=== PATIENT | female | born 1990 | race American Indian/Alaskan Native ===

== ENCOUNTER 2018-02-14 16:59 | Emergency (ER) | payer SELFPAY ==
[2018-02-14 21:42] LABS: Basophils % (Auto) 0.7 % (0.0-1.8); Eosinophils # (Auto) 0.1 K/mm3 (0.0-0.4); Eosinophils % (Auto) 2.3 % (0.0-4.3); Hematocrit 37.4 % (30.3-42.9); Hemoglobin 12.4 gm/dl (10.1-14.3); Lymphocytes # (Auto) 2.3 K/mm3 (1.2-5.4); Lymphocytes % (Auto) 51.6 % (13.4-35.0); Mean Corpuscular HGB Conc 33 % (30-34); Mean Corpuscular Hemoglobin 31 pg (28-32); Mean Corpuscular Volume 92 fl (79-97); Monocytes # (Auto) 0.4 K/mm3 (0.0-0.8); Platelet Count 303 K/mm3 (140-440); Red Blood Count 4.06 M/mm3 (3.65-5.03); Red Cell Distribution Width 13.6 % (13.2-15.2)
[2018-02-14 21:49] LABS: Partial Thromboplastin Time 27.9 Sec. (24.2-36.6)
--- NOTE | 2018-02-14 22:32 | XRay Report ---
FINAL REPORT EXAM: XR TIBIA FIBULA 2V RT HISTORY: LE pain swelling TECHNIQUE: AP and lateral views of the right tibia fibula PRIORS: None. FINDINGS: The bones are normally aligned and mineralized. There is no evidence of fracture or subluxation. The soft tissues are unremarkable. IMPRESSION: No evidence of acute injury. Normal right tib-fib series
[2018-02-14 23:04] VITALS: BP 99/57
--- NOTE | 2018-02-14 23:45 | Emergency Department Report ---
ED Lower Extremity HPI - General Chief Complaint: Extremity Injury, Lower Stated Complaint: STIFFNESS ON (R) CALF Time Seen by Provider: 02/14/18 21:17 Source: patient Mode of arrival: Ambulatory Limitations: No Limitations - History of Present Illness Initial Comments: Patient presents from PCP office for right lower extremity pain with Tenderness to dorsiflexion PCP questioning Doppler study of right lower extremity rule out DVT patient denies history of DVT no chest pain or shortness of breath started 2 days ago after walking felt a spasm program from right calf down to the right lower extremity patient is ambulatory gait steady at this time without gait disturbance Complaint: leg injury Onset/Timin -: days(s) Injury: Leg: Right Type of Injury: hyperflexion Place: home Severity: moderate Severity scale (0 -10): 3 Improves With: immobilization, rest Worsens With: weight bearing, palpation Context: other ([place]) Associated Symptoms: snap/pop sensation, swelling, unable to bear weight, able to partially bear weight. denies: numbness, tingling - Related Data Home Medications Medication Instructions Recorded Confirmed Last Taken Vit-Fe Fumar-FA [ ONCE 11/09/15 11/08/15 Vitamin] Previous Rx's Medication Instructions Recorded Last Taken Type Ibuprofen [Motrin 800 MG tab] 800 mg PO Q8HR PRN #30 tablet 11/10/15 Unknown Rx oxyCODONE /ACETAMINOPHEN [Percocet 2 tab PO Q4HR PRN #30 tablet 11/10/15 Unknown Rx 5/325] Cyclobenzaprine [Flexeril] 10 mg PO BID PRN #20 tablet 02/14/18 Unknown Rx Menthol/Camphor [[place] 1 applicatio TP TID PRN #1 tube 02/14/18 Unknown Rx Ointment] Naproxen 500 mg PO BID PRN #30 tablet 02/14/18 Unknown Rx Allergies Allergy/AdvReac Type Severity Reaction Status Date / Time No Known Allergies Allergy Verified 02/14/18 17:06 ED Review of Systems ROS: Stated complaint: STIFFNESS ON (R) CALF Other details as noted in HPI Constitutional: denies: chills, fever Eyes: denies: eye pain, eye discharge, vision change ENT: denies: ear pain, throat pain Respiratory: denies: cough, shortness of breath, wheezing Cardiovascular: denies: chest pain, palpitations Endocrine: no symptoms reported Genitourinary: denies: urgency, dysuria, discharge Musculoskeletal: arthralgia, myalgia Skin: denies: rash, lesions Neurological: denies: headache, weakness, numbness, paresthesias, confusion, abnormal gait, vertigo Psychiatric: denies: anxiety, depression Hematological/Lymphatic: denies: easy bleeding, easy bruising ED Past Medical Hx - Past Medical History Previous Medical History?: No Hx Hypertension: No Hx Congestive Heart Failure: No Hx Diabetes: No Hx Deep Vein Thrombosis: No Hx Renal Disease: No Hx Sickle Cell Disease: No Hx Seizures: No Hx Asthma: No Hx COPD: No Hx HIV: No - Surgical History Past Surgical History?: No - Social History Smoking Status: Never Smoker Substance Use Type: None - Medications Home Medications: Home Medications Medication Instructions Recorded Confirmed Last Taken Type Vit-Fe Fumar-FA [ ONCE 11/09/15 11/08/15 History Vitamin] Ibuprofen [Motrin 800 MG tab] 800 mg PO Q8HR PRN #30 tablet 11/10/15 Unknown Rx oxyCODONE /ACETAMINOPHEN [Percocet 2 tab PO Q4HR PRN #30 tablet 11/10/15 Unknown Rx 5/325] Cyclobenzaprine [Flexeril] 10 mg PO BID PRN #20 tablet 02/14/18 Unknown Rx Menthol/Camphor [[place] 1 applicatio TP TID PRN #1 tube 02/14/18 Unknown Rx Ointment] Naproxen 500 mg PO BID PRN #30 tablet 02/14/18 Unknown Rx ED Physical Exam - General Limitations: No Limitations General appearance: alert, in no apparent distress - Head Head exam: Present: atraumatic, normocephalic - Eye Eye exam: Present: normal appearance - ENT ENT exam: Present: mucous membranes moist - Neck Neck exam: Present: normal inspection, full ROM. Absent: tenderness, meningismus, lymphadenopathy, thyromegaly - Respiratory Respiratory exam: Present: normal lung sounds bilaterally. Absent: respiratory distress, wheezes, stridor, chest wall tenderness - Cardiovascular Cardiovascular Exam: Present: regular rate, normal rhythm, normal heart sounds. Absent: systolic murmur, diastolic murmur, rubs, gallop - GI/Abdominal GI/Abdominal exam: Present: soft, normal bowel sounds. Absent: bruit, hernia - Rectal Rectal exam: Present: deferred - Extremities Exam Extremities exam: Present: normal inspection, full ROM, tenderness, normal capillary refill, calf tenderness, other (pain with dorsoflexion of right calf ) . Absent: pedal edema, joint swelling - Back Exam Back exam: Present: normal inspection, full ROM. Absent: tenderness, CVA tenderness (R), CVA tenderness (L), muscle spasm, paraspinal tenderness, vertebral tenderness, rash noted - Neurological Exam Neurological exam: Present: alert, oriented X3, CN II-XII intact, normal gait, reflexes normal. Absent: motor sensory deficit - Psychiatric Psychiatric exam: Present: normal affect, normal mood - Skin Skin exam: Present: warm, dry, intact, normal color. Absent: rash ED Course Vital Signs 02/14/18 02/14/18 17:06 22:55 Temperature 98.3 F 98.2 F Pulse Rate 82 80 Respiratory 18 16 Rate Blood Pressure 114/72 Blood Pressure 99/57 [Right] O2 Sat by Pulse 100 100 Oximetry ED Lower Extremity MDM - Lab Data Result diagrams: 02/14/18 21:26 Laboratory Tests 02/14/18 02/14/18 21:26 21:26 WBC 4.4 L RBC 4.06 Hgb 12.4 Hct 37.4 MCV 92 MCH 31 MCHC 33 RDW 13.6 Plt Count 303 Lymph % (Auto) 51.6 H [place] % (Auto) 8.0 H Eos % (Auto) 2.3 Baso % (Auto) 0.7 Lymph # 2.3 [place] # 0.4 Eos # 0.1 Baso # 0.0 Seg Neutrophils % 37.4 L Seg Neutrophils # 1.7 L PT 13.7 INR 1.00 APTT 27.9 D-Dimer 210.84 Was playing available programs was Rocephin no left-sided - Radiology Data Radiology results: report reviewed, image reviewed no fracture no soft tissue abnormality - Medical Decision Making This is musculoskeletal strain versus Strain d-dimer is normal as well as DVT is 0 patient will not need Doppler study of right lower extremity , however pt is insistant on same , I will schedule outpt CV Doppler RLE ,patient DC'd to home in stable condition at this time prescription for NSAIDs muscle relaxant analgesic rub patient will follow with PCP outpatient in 2-3 days patient verbalizes agreement and understanding with same will be DC'd home in stable condition at this time Critical care attestation.: If time is entered above; I have spent that time in minutes in the direct care of this critically ill patient, excluding procedure time. ED Disposition Clinical Impression: anomaly Strain of calf muscle Qualifiers: Encounter type: initial encounter Laterality: right Qualified Code(s): S86.811A - Strain of other muscle(s) and tendon(s) at lower leg level, right leg , initial encounter Musculoskeletal pain of lower extremity Qualifiers: Laterality: right Qualified Code(s): M79.604 - Pain in right leg Disposition: DC- TO HOME OR SELFCARE Is pt being admited?: No Does the pt Need Aspirin: No Condition: Good Instructions: Muscle Strain (ED), Musculoskeletal Pain (ED) Prescriptions: Cyclobenzaprine [Flexeril] 10 mg PO BID PRN #20 tablet PRN Reason: Muscle Spasm Menthol/Camphor [[place] Ointment] 1 applicatio TP TID PRN #1 tube PRN Reason: pain Naproxen 500 mg PO BID PRN #30 tablet PRN Reason: pain Referrals: PRIMARY CARE, [Primary Care Provider] - 3-5 Days Forms: Work/School Release Form(ED) Time of Disposition: 23:47
== END 2018-02-14 23:55 | disposition home or self-care (01) ==
LOC: ED 16:59
DX: S86.811A Strain of other muscle(s) and tendon(s) at lower leg level, right leg, initial encounter (principal); X58.XXXA Exposure to other specified factors, initial encounter; Y93.01 Activity, walking, marching and hiking; Y99.8 Other external cause status; Y92.099 Unspecified place in other non-institutional residence as the place of occurrence of the external cause
CPT/HCPCS: 36415; 85025; 85379; 85610; 85730

== ENCOUNTER 2019-07-03 13:35 | Emergency (ER) | payer SELFPAY ==
[2019-07-03 14:06] VITALS: BP 114/68
--- NOTE | 2019-07-03 14:44 | Event Note ---
ED Screening Note Date of service: 07/03/19 Time: 14:42 ED Screening Note: 29 y o female presents with right flank pain x 4 days, worsening in sx LMP: 06/12/2019 PMH: none This initial assessment/diagnostic orders/clinical plan/treatment(s) is/are subject to change based on patients health status, clinical progression and re- assessment by fellow clinical providers in the ED. Further treatment and workup at subsequent clinical providers discretion. Patient/guardian urged not to elope from the ED as their condition may be serious if not clinically assessed and managed. Initial orders include: ua,upt, cbc, cmp acc eval
[2019-07-03 15:41] LABS: Basophils % (Auto) 0.9 % (0.0-1.8); Eosinophils # (Auto) 0.2 K/mm3 (0.0-0.4); Eosinophils % (Auto) 3.6 % (0.0-4.3); Hematocrit 38.5 % (30.3-42.9); Hemoglobin 13.2 gm/dl (10.1-14.3); Lymphocytes % (Auto) 38.4 % (13.4-35.0); Mean Corpuscular HGB Conc 34 % (30-34); Mean Corpuscular Volume 92 fl (79-97); Monocytes # (Auto) 0.4 K/mm3 (0.0-0.8); Monocytes % (Auto) 7.4 % (0.0-7.3); Platelet Count 325 K/mm3 (140-440); Red Blood Count 4.19 M/mm3 (3.65-5.03); Red Cell Distribution Width 13.4 % (13.2-15.2)
[2019-07-03 16:06] LABS: Alanine Aminotransferase 8 units/L (7-56); Albumin 4.7 g/dL (3.9-5); BUN/Creatinine Ratio 11; Blood Urea Nitrogen 8 mg/dL (7-17); Calcium 9.6 mg/dL (8.4-10.2); Hemolysis Index 13
[2019-07-03 17:23] LABS: Bacteria,Urine 1+ /HPF (Negative); Bilirubin,Urine NEG (Negative); Blood,Urine NEG (Negative); Color,Urine Yellow (Yellow); Protein,Urine <15 mg/dL mg/dL (Negative); Urobilinogen,Urine < 2.0 mg/dL (<2.0); WBC,Urine < 1.0 /HPF (0.0-6.0)
--- NOTE | 2019-07-03 19:35 | XRay Report ---
ABDOMEN 1 VIEW(S) INDICATION: right flank pain COMPARISON: None available. FINDINGS: Bowel gas pattern: Within normal limits. No dilated loops of large or small bowel. Free air: None. Calcified gallstones: None seen. Calcified urinary tract calculi: None seen. Additional Findings: IUD is within the pelvis Skeletal structures: No acute abnormality. IMPRESSION: 1. No acute findings. Signer Name: Satish Miller MD Signed: 07/03/2019 7:31 PM Workstation Name: [id number]
--- NOTE | 2019-07-03 20:22 | Emergency Department Report ---
ED Abdominal Pain HPI - General Chief Complaint: Abdominal Pain Stated Complaint: ABD PAIN, REF FROM URGENT CARE Time Seen by Provider: 07/03/19 19:36 Source: patient Mode of arrival: Ambulatory Limitations: No Limitations - History of Present Illness Initial Comments: Ms. Villegas is a 29 y o female presents with right flank pain x 4 days, worsening in sx, denies dysuria, no hematuria, no n/v ,no fever or chills, no n/v LMP: 06/12/2019, PMH: none MD Complaint: flank pain Onset/Timin -: days(s) Location: R flank Radiation: R flank Migration to: no migration Severity: moderate Severity scale (0 -10): 4 Quality: aching Consistency: intermittent Improves With: nothing Worsens With: nothing Associated Symptoms: denies: nausea, vomiting, diarrhea, fever, chills, melena - Related Data LMP Date: 07/01/19 Home Medications Medication Instructions Recorded Confirmed Last Taken Vit-Fe Fumar-FA [ ONCE 11/09/15 11/08/15 Vitamin] Previous Rx's Medication Instructions Recorded Last Taken Type Ibuprofen [Motrin 800 MG tab] 800 mg PO Q8HR PRN #30 tablet 11/10/15 Unknown Rx oxyCODONE /ACETAMINOPHEN [Percocet 2 tab PO Q4HR PRN #30 tablet 11/10/15 Unknown Rx 5/325] Cyclobenzaprine [Flexeril] 10 mg PO BID PRN #20 tablet 02/14/18 Unknown Rx Menthol/Camphor [[place] 1 applicatio TP TID PRN #1 tube 02/14/18 Unknown Rx Ointment] Naproxen 500 mg PO BID PRN #30 tablet 02/14/18 Unknown Rx Ibuprofen [Motrin 800 MG tab] 800 mg PO Q8HR PRN #30 tablet 07/03/19 Unknown Rx Nitrofurantoin [place]/M-Cryst 100 mg PO BID 7 Days #14 capsule 07/03/19 Unknown Rx [Macrobid CAP] Allergies Allergy/AdvReac Type Severity Reaction Status Date / Time No Known Allergies Allergy Verified 02/14/18 17:06 ED Review of Systems ROS: Stated complaint: ABD PAIN, REF FROM URGENT CARE Other details as noted in HPI Constitutional: denies: chills, fever Eyes: denies: eye pain, eye discharge, vision change ENT: denies: ear pain, throat pain Respiratory: denies: cough, shortness of breath, wheezing Cardiovascular: denies: chest pain, palpitations Endocrine: no symptoms reported Gastrointestinal: abdominal pain. denies: nausea, vomiting, diarrhea, constipa tion Genitourinary: denies: urgency, dysuria, frequency, hematuria, discharge, dyspareunia Musculoskeletal: back pain (right flank pain ) Skin: denies: rash, lesions Neurological: denies: headache, weakness, paresthesias Psychiatric: denies: anxiety, depression Hematological/Lymphatic: denies: easy bleeding, easy bruising ED Past Medical Hx - Past Medical History Previous Medical History?: Yes Hx Hypertension: No Hx Congestive Heart Failure: No Hx Diabetes: No Hx Deep Vein Thrombosis: No Hx Renal Disease: No Hx Sickle Cell Disease: No Hx Seizures: No Hx Asthma: No Hx COPD: No Hx HIV: No - Surgical History Past Surgical History?: No - Social History Smoking Status: Never Smoker Substance Use Type: None - Medications Home Medications: Home Medications Medication Instructions Recorded Confirmed Last Taken Type Vit-Fe Fumar-FA [ ONCE 11/09/15 11/08/15 History Vitamin] Ibuprofen [Motrin 800 MG tab] 800 mg PO Q8HR PRN #30 tablet 11/10/15 Unknown Rx oxyCODONE /ACETAMINOPHEN [Percocet 2 tab PO Q4HR PRN #30 tablet 11/10/15 Unknown Rx 5/325] Cyclobenzaprine [Flexeril] 10 mg PO BID PRN #20 tablet 02/14/18 Unknown Rx Menthol/Camphor [[place] 1 applicatio TP TID PRN #1 tube 02/14/18 Unknown Rx Ointment] Naproxen 500 mg PO BID PRN #30 tablet 02/14/18 Unknown Rx Ibuprofen [Motrin 800 MG tab] 800 mg PO Q8HR PRN #30 tablet 07/03/19 Unknown Rx Nitrofurantoin [place]/M-Cryst 100 mg PO BID 7 Days #14 capsule 07/03/19 Unknown Rx [Macrobid CAP] ED Physical Exam - General Limitations: No Limitations General appearance: alert, in no apparent distress - Head Head exam: Present: atraumatic, normocephalic - Eye Eye exam: Present: normal appearance, PERRL, EOMI Pupils: Present: normal accommodation - ENT ENT exam: Present: mucous membranes moist - Neck Neck exam: Present: normal inspection, full ROM. Absent: tenderness - Respiratory Respiratory exam: Present: normal lung sounds bilaterally. Absent: respiratory distress, wheezes, stridor - Cardiovascular Cardiovascular Exam: Present: regular rate, normal rhythm, normal heart sounds. Absent: systolic murmur, diastolic murmur, rubs, gallop - GI/Abdominal GI/Abdominal exam: Present: soft, tenderness (right flank ), normal bowel sounds. Absent: distended, guarding, rebound, rigid, bruit, hernia - Rectal Rectal exam: Present: deferred - Extremities Exam Extremities exam: Present: normal inspection - Back Exam Back exam: Present: normal inspection, full ROM, tenderness, CVA tenderness (R). Absent: CVA tenderness (L), muscle spasm, paraspinal tenderness, vertebral tenderness, rash noted - Neurological Exam Neurological exam: Present: alert, oriented X3, CN II-XII intact, normal gait, reflexes normal - Psychiatric Psychiatric exam: Present: normal affect, normal mood - Skin Skin exam: Present: warm, dry, intact, normal color. Absent: rash ED Course Vital Signs 07/03/19 14:05 Temperature 98.1 F Pulse Rate 88 Respiratory 16 Rate Blood Pressure 114/68 O2 Sat by Pulse 99 Oximetry ED Medical Decision Making - Lab Data Result diagrams: 07/03/19 15:29 07/03/19 15:29 Labs 07/03/19 07/03/19 07/03/19 15:29 15:29 15:29 WBC 5.2 RBC 4.19 Hgb 13.2 Hct 38.5 MCV 92 MCH 32 MCHC 34 RDW 13.4 Plt Count 325 Lymph % (Auto) 38.4 H [place] % (Auto) 7.4 H Eos % (Auto) 3.6 Baso % (Auto) 0.9 Lymph # 2.0 [place] # 0.4 Eos # 0.2 Baso # 0.0 Seg Neutrophils % 49.7 Seg Neutrophils # 2.6 Sodium 139 Potassium 3.8 Chloride 101.4 Carbon Dioxide 25 Anion Gap 16 BUN 8 Creatinine 0.7 Estimated GFR > 60 BUN/Creatinine Ratio 11 Glucose 81 Calcium 9.6 Total Bilirubin 0.20 AST 14 ALT 8 Alkaline Phosphatase 59 Total Protein 7.7 Albumin 4.7 Albumin/Globulin Ratio 1.6 HCG, Qual Negative Urine Color Urine Turbidity Urine pH Ur Specific [place] Urine Protein Urine Glucose (UA) Urine Ketones Urine Blood Urine Nitrite Urine Bilirubin Urine Urobilinogen Ur Leukocyte Esterase Urine WBC (Auto) Urine RBC (Auto) U Epithel Cells (Auto) Urine Bacteria (Auto) 07/03/19 16:17 WBC RBC Hgb Hct MCV MCH MCHC RDW Plt Count Lymph % (Auto) [place] % (Auto) Eos % (Auto) Baso % (Auto) Lymph # [place] # Eos # Baso # Seg Neutrophils % Seg Neutrophils # Sodium Potassium Chloride Carbon Dioxide Anion Gap BUN Creatinine Estimated GFR BUN/Creatinine Ratio Glucose Calcium Total Bilirubin AST ALT Alkaline Phosphatase Total Protein Albumin Albumin/Globulin Ratio HCG, Qual Urine Color Yellow Urine Turbidity Clear Urine pH 7.0 Ur Specific [place] 1.012 Urine Protein <15 mg/dl Urine Glucose (UA) Neg Urine Ketones Neg Urine Blood Neg Urine Nitrite Neg Urine Bilirubin Neg Urine Urobilinogen < 2.0 Ur Leukocyte Esterase Sm Urine WBC (Auto) < 1.0 Urine RBC (Auto) 1.0 U Epithel Cells (Auto) 3.0 Urine Bacteria (Auto) 1+ - Radiology Data Radiology results: report reviewed, image reviewed Ordering Physician: LIZBET WHITE Date of Service: 07/03/19 Procedure(s): XR abdomen 1V ap Accession Number(s): [id number] cc: LIZBET WHITE Fluoro Time In Minutes: ABDOMEN 1 VIEW(S) INDICATION: right flank pain COMPARISON: None available. FINDINGS: Bowel gas pattern: Within normal limits. No dilated loops of large or small bowel. Free air: None. Calcified gallstones: None seen. Calcified urinary tract calculi: None seen. Additional Findings: IUD is within the pelvis Skeletal structures: No acute abnormality. IMPRESSION: 1. No acute findings. Signer Name: Satish Miller MD Signed: 07/03/2019 7:31 PM Workstation Name: [id number] Transcribed By: MULUGETA Dictated By: Satish Miller MD Electronically Authenticated By: Satish Miller MD Signed Date/Time: 07/03/191930 DD/ 28 TD/TT: - Medical Decision Making symptoms improved plan tx for UTI: macrobid, ibuprofen follow up with pcp in 2-3 days. pt verbalized agreement and understanding of same. Critical care attestation.: If time is entered above; I have spent that time in minutes in the direct care of this critically ill patient, excluding procedure time. ED Disposition Clinical Impression: UTI (urinary tract infection) Qualifiers: Urinary tract infection type: acute cystitis Hematuria presence: without hematuria Qualified Code(s): N30.00 - Acute cystitis without hematuria Disposition: TO HOME OR SELFCARE Is pt being admited?: No Does the pt Need Aspirin: No Condition: Stable Instructions: Urinary Tract Infection in Women (ED) Prescriptions: Nitrofurantoin [place]/M-Cryst [Macrobid CAP] 100 mg PO BID 7 Days #14 capsule Ibuprofen [Motrin 800 MG tab] 800 mg PO Q8HR PRN #30 tablet PRN Reason: pain Referrals: MEGAN HINSON MD [Staff Physician] - 3-5 Days Forms: Work/School Release Form(ED) Time of Disposition: 20:43
[2019-07-03] MEDS ORDERED: IBUPROFEN 800 MG TAB PO ONE (20:41)
== END 2019-07-03 20:55 | disposition home or self-care (01) ==
LOC: ED 13:35
DX: N39.0 Urinary tract infection, site not specified (principal); Z79.899 Other long term (current) drug therapy
CPT/HCPCS: 36415; 74018; 80053; 81001; 84703; 85025

== ENCOUNTER 2019-07-22 12:45 | Outpatient (CLI) | payer BC ==
[2019-07-22 13:41] LABS: Chol/HDL Ratio 2.19 %
== END 2019-07-22 12:46 | disposition home or self-care (01) ==
LOC: LAB 12:45
PROVIDERS: ATTEND Internal Medicine
DX: Z00.00 Encounter for general adult medical examination without abnormal findings (principal); Z13.1 Encounter for screening for diabetes mellitus; Z13.29 Encounter for screening for other suspected endocrine disorder; Z13.21 Encounter for screening for nutritional disorder; E78.5 Hyperlipidemia, unspecified
CPT/HCPCS: 36415; 80061; 82306; 82607; 83036; 84443

== ENCOUNTER 2020-04-10 12:10 | Outpatient (CLI) | payer BC ==
--- NOTE | 2020-04-10 14:01 | Vascular Lab Report ---
DUPLEX DOPPLER LOWER EXTREMITY VEINS, BILATERAL INDICATION: EDEMA. TECHNIQUE: Duplex doppler imaging was performed through the veins of both lower extremities using venous grace wilma and other maneuvers. COMPARISON: No relevant prior imaging study available. FINDINGS: Right Common femoral vein: Negative. Right Superficial femoral vein: Negative. Right Popliteal vein: Negative. Right Calf veins: Negative. Left Common femoral vein: Negative. Left Superficial femoral vein: Negative. Left Popliteal vein: Negative. Left Calf veins: Negative. Additional findings: None.. IMPRESSION: 1. No sonographic evidence for DVT in either lower extremity. Signer Name: Richard Lynne MD Signed: 04/10/2020 1:57 PM Workstation Name: [id number]
== END 2020-04-10 12:11 | disposition home or self-care (01) ==
LOC: VAS 12:10
PROVIDERS: ATTEND Internal Medicine
DX: R60.9 Edema, unspecified (principal)
CPT/HCPCS: 93970

== ENCOUNTER 2022-01-03 10:41 | Outpatient (CLI) | payer BC ==
[2022-01-03 12:25] LABS: Basophils % (Auto) 0.8 % (0.0-1.8); Eosinophils # (Auto) 0.1 K/mm3 (0.0-0.4); Eosinophils % (Auto) 2.6 % (0.0-4.3); Hematocrit 37.3 % (30.3-42.9); Hemoglobin 12.6 gm/dl (10.1-14.3); Lymphocytes # (Auto) 1.8 K/mm3 (1.2-5.4); Lymphocytes % (Auto) 42.2 % (13.4-35.0); Mean Corpuscular HGB Conc 34 % (30-34); Mean Corpuscular Volume 93 fl (79-97); Monocytes # (Auto) 0.3 K/mm3 (0.0-0.8); Monocytes % (Auto) 7.4 % (0.0-7.3); Platelet Count 284 K/mm3 (140-440); Red Cell Distribution Width 13.3 % (13.2-15.2)
[2022-01-03 12:34] LABS: Alanine Aminotransferase 8 units/L (7-56); Albumin 4.8 g/dL (3.9-5); Blood Urea Nitrogen 10 mg/dL (7-17); Calcium 9.7 mg/dL (8.4-10.2); Hemolysis Index 8
[2022-01-03 12:35] LABS: BUN/Creatinine Ratio 14
== END 2022-01-03 10:42 | disposition home or self-care (01) ==
LOC: LABHHL 10:41
PROVIDERS: ATTEND Internal Medicine
DX: Z00.00 Encounter for general adult medical examination without abnormal findings (principal); E78.5 Hyperlipidemia, unspecified; E55.9 Vitamin D deficiency, unspecified; R53.83 Other fatigue
CPT/HCPCS: 36415; 80053; 82306; 84443; 85025